=== PATIENT | female | born 1955 | race Caucasian/White ===

== ENCOUNTER 2019-02-17 14:19 | Emergency (ER) | payer MEDICAID ==
[~2019-02-17] VITALS: Ht 156.2 cm; Wt 71.2 kg
[2019-02-17 14:39] VITALS: BP 128/70
--- NOTE | 2019-02-17 14:53 | NUR ---
PT TAKEN TO BED 1.
--- NOTE | 2019-02-17 15:02 | NUR ---
PATIENT PRESENTS TO ED WITH PT BIB FRIEND C/O GENERALIZED BODY ACHE X 2 WEEKS. PATIENT IS A KNOWN DIABETIC WITH HYPERCHOLESTEROLEMIA. PT HAS HAD NO ACCESS TO MEDICATIONS FOR 6 MONTHS D/T LOSS OF INSURANCE. PATIENT REPORTS "NOT FEELING WELL", +H/A, LOSS OF APPETITE, INSOMNIA, WT LOSS >25 LBS IN A MONTH. PT DENIES ANY FEVER, CP, SOB, OR COUGH AT THIS TIME; VSS; PATIENT POSITIONED FOR COMFORT; HOB ELEVATED; BEDRAILS UP X2; BED DOWN. ER MD MADE AWARE OF PT STATUS. PMH: BRAIN TUMOR, DM, HYPERCHOLESTEROLEMIA MEDS: NONE NKA.
[2019-02-17 15:59] LABS: ACETONE, SERUM NEGATIVE (NEGATIVE)
[2019-02-17 16:00] LABS: ANION GAP 13.7 (8-16); CARBON DIOXIDE 28.9 mmol/L (21-32); CREATININE 0.7 mg/dL (0.6-1.3); POTASSIUM 3.6 mmol/L (3.5-5.1)
[2019-02-17 16:06] LABS: ALBUMIN 3.3 g/dL (3.4-5.0); TOTAL BILIRUBIN 0.3 mg/dL (0.0-1.0)
[2019-02-17 16:12] LABS: LIPASE 287 U/L (73-393)
[2019-02-17 16:25] LABS: APPEARANCE,URINE HAZY (CLEAR); BILIRUBIN,URINE 1+ (NEGATIVE); BLOOD, URINE NEGATIVE (NEGATIVE); COLOR,URINE YELLOW (YELLOW); LEUKOCYTE ESTERASE ,URINE 2+ (NEGATIVE); NITRITE, URINE POSITIVE (NEGATIVE); PH,URINE 5.5 (5.0-9.0); UGLUCOSE NEGATIVE (NEGATIVE)
[2019-02-17 16:26] LABS: RBC,URINE NONE SEEN /HPF (0-5)
[2019-02-17 16:27] LABS: WBC,URINE 20-60 /HPF (0-5)
[2019-02-17] MEDS ORDERED: cefTRIAXone 1,000 MG VIAL ONE (16:55)
[2019-02-17 17:20] LABS: BASOPHILS % (AUTO) 0.3 % (0.0-2.0); EOSINOPHILS # (AUTO) 0.1 K/uL (0-0.4); EOSINOPHILS % (AUTO) 1.4 % (0.0-4.0); HEMATOCRIT 41.7 % (36-48); HEMOGLOBIN 13.8 g/dL (12.0-16.0); LYMPHOCYTES # (AUTO) 4.6 K/uL (2.5-16.5); LYMPHOCYTES % (AUTO) 43.3 % (20.5-51.1); MEAN CORPUSCULAR HEMOGLOBIN 30 pg (27-31); MEAN CORPUSCULAR HGB CONC 33 g/dL (33-37); MEAN CORPUSCULAR VOLUME 89.8 fL (80-94); MONOCYTES # (AUTO) 0.6 K/uL (0.8-1.0); MONOCYTES % (AUTO) 5.9 % (1.7-9.3); NEUTROPHILS # (AUTO) 5.3 K/uL (1.8-7.7); NEUTROPHILS % (AUTO) 49.1 % (42.2-75.2); PLATELET COUNT (AUTO) 420 K/uL (140-450); RED BLOOD CELL COUNT(AUTO) 4.64 MIL/uL (4.20-5.40); RED CELL DISTRIBUTION WIDTH 14.3 % (11.6-13.7); WHITE BLOOD COUNT (AUTO) 10.7 K/uL (4.8-10.8)
[2019-02-17 17:57] VITALS: BP 120/65
--- NOTE | 2019-02-17 17:58 | NUR ---
Patient discharged with v/s stable. Written and verbal after care instructions given and explained. Patient alert, oriented and verbalized understanding of instructions. Ambulatory with steady gait. All questions addressed prior to discharge. ID band removed. Patient advised to follow up with PMD. Rx of KEFLEX, METFORMIN given. Patient educated on indication of medication including possible reaction and side effects. Opportunity to ask questions provided and answered.
--- NOTE | 2019-02-20 00:05 | NUR ---
URINE CULTURE RESULTS NOTED BY DR. HUGHES, NO NEED TO RETURN BACK.MEDICATION GIVEN BY DR. DUDLEY GOFF.
== END 2019-02-17 17:58 | disposition home or self-care (01) ==
LOC: MED 14:19
DX: N39.0 Urinary tract infection, site not specified (principal); E11.65 Type 2 diabetes mellitus with hyperglycemia; I10 Essential (primary) hypertension; E78.00 Pure hypercholesterolemia, unspecified; Z98.890 Other specified postprocedural states
CPT/HCPCS: 36415; 70450; 71045; 80053; 81001; 82009; 82948; 83690; 83880; 84484; 85025; 87086; 87186; 96365; 99284; J0696; Q0092; 93005

== ENCOUNTER 2020-07-15 13:24 | Emergency (ER) | payer MEDICAID, OTHER ==
[~2020-07-15] VITALS: Ht 152.4 cm; Wt 72.6 kg
[2020-07-15 13:24] VITALS: BP 135/56
[2020-07-15 14:11] LABS: BASOPHILS # (AUTO) 0.1 K/uL (0.00-0.22); BASOPHILS % (AUTO) 0.6 % (0.0-2.0); EOSINOPHILS % (AUTO) 0.2 % (0.0-4.0); HEMATOCRIT 41.9 % (36-48); LYMPHOCYTES # (AUTO) 6.3 K/uL (2.5-16.5); LYMPHOCYTES % (AUTO) 32.3 % (20.5-51.1); MEAN CORPUSCULAR HEMOGLOBIN 31 pg (27-31); MEAN CORPUSCULAR HGB CONC 33 g/dL (33-37); MEAN CORPUSCULAR VOLUME 93.4 fL (80-94); MONOCYTES # (AUTO) 1.7 K/uL (0.8-1.0); MONOCYTES % (AUTO) 8.7 % (1.7-9.3); NEUTROPHILS # (AUTO) 11.4 K/uL (1.8-7.7); NEUTROPHILS % (AUTO) 58.2 % (42.2-75.2); PLATELET COUNT (AUTO) 581 K/uL (140-450); RED BLOOD CELL COUNT(AUTO) 4.49 MIL/uL (4.20-5.40); RED CELL DISTRIBUTION WIDTH 13.7 % (11.6-13.7); WHITE BLOOD COUNT (AUTO) 19.7 K/uL (4.8-10.8)
[2020-07-15 14:23] LABS: PROTHROMBIN TIME 14.2 secs (10.8-13.4)
[2020-07-15 14:25] LABS: ALBUMIN 3.8 g/dL (3.4-5.0); ANION GAP 15.4 (8-16); CARBON DIOXIDE 25.3 mmol/L (21-32); TOTAL BILIRUBIN 0.6 mg/dL (0.0-1.0)
[2020-07-15 14:28] LABS: POTASSIUM 2.7 mmol/L (3.5-5.1)
[2020-07-15] MEDS: MAG SULF 2000 MG/WATER PREMIX 50 ML IV ONE ×2 (14:40→15:34)
[2020-07-15] MEDS ORDERED: KCL 20 MEQ/WATER INJ PREMIX 100 ML IV ONE (14:40)
[2020-07-15 15:16] LABS: APPEARANCE,URINE CLEAR (CLEAR); BILIRUBIN,URINE NEGATIVE (NEGATIVE); BLOOD, URINE NEGATIVE (NEGATIVE); COLOR,URINE YELLOW (YELLOW); LEUKOCYTE ESTERASE ,URINE 1+ (NEGATIVE); NITRITE, URINE NEGATIVE (NEGATIVE); PH,URINE 6.5 (5.0-9.0); UGLUCOSE NEGATIVE (NEGATIVE)
[2020-07-15] MEDS ORDERED: NACL 0.9% 1,000 ML IV ONE (15:25)
[2020-07-15 15:26] LABS: BARBITURATE, URINE NEGATIVE ng/ml (NEG <=200); BENZODIAZEPINE, URINE NEGATIVE ng/mL (NEG <=200); CANNABINOID, URINE POSITIVE ng/mL (NEG <=50); COCAINE, URINE NEGATIVE ng/mL (NEG <=300); OPIATE, URINE NEGATIVE ng/mL (NEG <=2000); PHENCYCLIDINE SCREEN,URINE NEGATIVE ng/mL (NEG <=25)
[2020-07-15 15:31] LABS: RBC,URINE 0-5 /HPF (0-5); WBC,URINE 80-100 /HPF (0-5)
[2020-07-15 16:15] VITALS: BP 135/56
== END 2020-07-15 16:15 | disposition short-term general hospital (02) ==
LOC: MED 13:24
DX: G93.40 Encephalopathy, unspecified (principal); G93.9 Disorder of brain, unspecified; E11.65 Type 2 diabetes mellitus with hyperglycemia; E87.6 Hypokalemia; I10 Essential (primary) hypertension; Z98.890 Other specified postprocedural states
CPT/HCPCS: 36415; 51702; 70450; 71045; 80053; 80305; 81001; 82140; 83880; 84484; 85025; 85610; 85730; 87086; 93005; 96365; 99291; J3480; J7030